=== PATIENT | male | born 1990 | race Caucasian/White ===

== ENCOUNTER 2024-11-11 13:36 | Emergency (ER) | payer OTHER ==
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
[2024-11-11 14:57] LABS: ALT 36 U/L (4-49); AST 35 U/L (17-59); African American GFR (CKD) >90 (>60 ml/min/1.73 sqM); Albumin 5.3 g/dL (3.5-5.0); Alcohol <10 mg/dL; Alkaline Phosphatase 50 U/L (38-126); Anion Gap 12 mmol/L; Blood Urea Nitrogen 10 mg/dL (9-20); Calcium 9.9 mg/dL (8.4-10.2); Carbon Dioxide 25 mmol/L (22-30); Chloride 103 mmol/L (98-107); Glucose 111 mg/dL (74-99); Non-African American GFR(CKD) >90 (>60 ml/min/1.73 sqM); Potassium 4.3 mmol/L (3.5-5.1); Sodium 140 mmol/L (137-145); Total Bilirubin 1.3 mg/dL (0.2-1.3); Total Protein 8.6 g/dL (6.3-8.2)
[2024-11-11 14:58] LABS: Basophils % (A) 0 %; Eosinophils # (A) 0.1 k/uL (0-0.7); Eosinophils % (A) 0 %; HCT 48.7 % (39.0-53.0); HGB 16.6 gm/dL (13.0-17.5); Lymphocytes # (A) 1.6 k/uL (1.0-4.8); Lymphocytes % (A) 13 %; MCHC 34.2 g/dL (31.0-37.0); MCV 90.8 fL (80.0-100.0); Mean Platelet Volume 8.6; Monocytes # (A) 0.5 k/uL (0-1.0); Monocytes % (A) 4 %; Neutrophils # (A) 9.8 k/uL (1.3-7.7); Neutrophils % (A) 81 %; Platelet Count 284 k/uL (150-450); RBC 5.36 m/uL (4.30-5.90); RDW 12.8 % (11.5-15.5); WBC 12.1 k/uL (3.8-10.6)
[2024-11-11 15:07] LABS: Amphetamine Screen,Urine Not Detected (NotDetected); Barbiturate Screen,Urine Not Detected (NotDetected); Benzodiazepines Screen,Urine Not Detected (NotDetected); Cocaine Screen,Urine Not Detected (NotDetected); Methadone Screen, Urine Not Detected (NotDetected); Opiate Screen,Urine Not Detected (NotDetected); Oxycodone Screen, Urine Not Detected (NotDetected); Phencyclidine Screen,Urine Not Detected (NotDetected); Tricyclic Antidepressant,Urine Not Detected (NotDetected); Urn Cannabinoid Scrn Detected (NotDetected)
--- NOTE | 2024-11-11 15:15 | XR ---
EXAMINATION TYPE: XR chest 2V DATE OF EXAM: 11/11/2024 3:06 PM COMPARISON: None. CLINICAL INDICATION: Male, 34 years old with history of Confusion, syncope, TECHNIQUE: Frontal and lateral views of the chest are obtained. FINDINGS: There is no focal air space opacity, pleural effusion, or pneumothorax seen. The cardiac silhouette size is within normal limits. The osseous structures are intact. IMPRESSION: No acute cardiopulmonary process. [facility], , 11/11/2024 3:13 PM
--- NOTE | 2024-11-11 15:20 | CT ---
EXAMINATION TYPE: CT brain wo con CT DLP: 1186.4 mGycm, Automated exposure control for dose reduction was used. DATE OF EXAM: 11/11/2024 3:07 PM COMPARISON: None. CLINICAL INDICATION:Male, 34 years old with history of Confusion, Syncope, confusion TECHNIQUE: Brain: Multiple axial CT images of the brain were obtained without IV contrast. . Coronal and sagitta l reformats reviewed. FINDINGS: Brain: Extra-axial spaces: No abnormal extra-axial fluid collections. Ventricular system: Within normal limits Cerebral parenchyma: No acute intraparenchymal hemorrhage or mass effect. The gallardo-white junction is well differentiated. Cerebellum: Unremarkable. Mass effect: No evidence of midline shift. Intracranial vasculature: unremarkable Soft tissues: Normal. Calvarium/osseous structures: No depressed skull fracture. Paranasal sinuses and mastoid air cells: The mastoid air cells are clear. Minimal mucosal thickening of the inferior right maxillary sinus. The remaining paranasal sinuses are clear. Visualized orbits: Orbital contents are intact. IMPRESSION: No acute intracranial process. [facility], , 11/11/2024 3:18 PM
[2024-11-11] MEDS: ONDANSETRON 4 MG/2 ML VIAL IVP STA (17:59)
[2024-11-11] MEDS: ONDANSETRON 4 MG ODT STARTER PACK 2 TAB BTL PO STA (18:00)
[2024-11-11 18:06] VITALS: BP 146/90; PULSE 57; RESP 18; TEMP 98
== END 2024-11-11 18:06 | disposition home or self-care (01) ==
LOC: EC 13:36
DX: E86.0 Dehydration (principal); R56.9 Unspecified convulsions; Z88.0 Allergy status to penicillin
CPT/HCPCS: 36415; 93005; 80053; 83735; 85025; 80306; 80320; 71046; 70450; 99284; 96374; J2405; S0119

== ENCOUNTER 2024-12-05 09:41 | Day surgery (SDC) | payer OTHER ==
[2024-12-03 10:39] VITALS: BMI 32.3
[2024-12-05 10:24] VITALS: BP 123/83; PULSE 66; RESP 16; TEMP 98.5
[2024-12-05] MEDS: SODIUM CHLORIDE 0.9% 1,000 ML IV SCH (11:35)
--- NOTE | 2024-12-05 14:34 | P.EPPROC ---
- EP Procedure Note Electrophysiology Procedure Note: Diagnosis Recurrent presyncope Twelve-lead EKG shows sinus rhythm normal DC narrow QRS normal ST segments Tilt table test per protocol Baseline blood pressure 133/78 mmHg pulse rate in the 50s Patient was tilted upright at an angle of 70 degrees per protocol No significant change in heart rate or blood pressure No evidence for neurocardiogenic syncope Impression Normal heart rate and blood pressure response to upright tilting Normal twelve-lead EKG
== END 2024-12-05 12:24 | disposition home or self-care (01) ==
LOC: CATHEP 09:41
PROVIDERS: ATTEND Internal Medicine Clinical Cardiac Electrophysiology
DX: R55 Syncope and collapse (principal); G40.909 Epilepsy, unspecified, not intractable, without status epilepticus; R41.3 Other amnesia; Z79.899 Other long term (current) drug therapy
CPT/HCPCS: 93660